=== PATIENT | female | born 1945 | race Caucasian/White ===

== ENCOUNTER 2017-10-24 09:00 | Day surgery (SDC) | payer MEDICARE, OTHER ==
[~2017-10-24 09:00] MED LIST: Lactated Ringers 1,000 ML IV SCH; Sodium Chloride 0.9% 10 ML Syringe FLUSH PRN; Sodium Chloride 0.9% 2.5 ML Syringe FLUSH PRN
--- NOTE | 2017-10-24 10:13 | PCM.PREANE ---
Preanesthetic Assessment - Anesthesia/Transfusion/Family Hx Anesthesia History: Prior Anesthesia Without Reaction Family History of Anesthesia Reaction: No Transfusion History: Prior Transfusion Without Reaction Intubation History: Unknown - Review of Systems General: No Symptoms Pulmonary: No Symptoms Cardiovascular: No Symptoms Gastrointestinal: Diarrhea Neurological: No Symptoms Other: Reports: None - Physical Assessment O2 Sat by Pulse Oximetry: 95 Respiratory Rate: 16 Vital Signs: Last Vital Signs Temp 36.4 C 10/24/17 09:25 Pulse 95 10/24/17 09:25 Resp 16 10/24/17 09:25 BP 154/73 H 10/24/17 09:25 Pulse Ox 95 10/24/17 09:25 Height: 1.57 m Weight: 66.678 kg ASA Class: 3 Mental Status: Alert & Oriented x3 Airway Class: Mallampati = 2 Dentition: Reports: Dentures (upper and lower) Thyro-Mental Finger Breadths: 3 Mouth Opening Finger Breadths: 2 ROM/Head Extension: Limited/Partial Lungs: Normal Respiratory Effort, Decreased Breath Sounds, Crackles Cardiovascular: Regular Rate, Regular Rhythm - Allergies Allergies/Adverse Reactions: Allergies Allergy/AdvReac Type Severity Reaction Status Date / Time gabapentin Allergy Shortness Verified 10/19/17 14:13 of Breath - Blood Blood Available: No - Anesthesia Plan Pre-Op Medication Ordered: None - Acknowledgements Anesthesia Type Planned: MAC Pt an Appropriate Candidate for the Planned Anesthesia: Yes Alternatives and Risks of Anesthesia Discussed w Pt/Guardian: Yes Pt/Guardian Understands and Agrees with Anesthesia Plan: Yes PreAnesthesia Questionnaire HEENT History: Reports: None Other HEENT History: wears glasses, has upper and lower dentures Cardiovascular History: Reports: None Respiratory History: Reports: Asthma (inhaler PRN), COPD Gastrointestinal History: Reports: Cholelithiasis, GERD Other Gastrointestinal History: got hepatitis C from a blood transfusion- has taken Harvoni and has been cured Genitourinary History: Reports: Acute Renal Failure, Renal Disease Other Genitourinary History: had acure renal failure after stroke- was on dialysis for 5 days, now has Stage 3 renal failure INFECTION CONTROL NURSE History: Reports: Musculoskeletal History: Reports: Back Pain, Chronic Other Musculoskeletal History: hx of fx left leg and right clavicle (no hardware ) Neurological History: Reports: CVA ( x2 in after second put into arficial comma for few weeks), Seizure Other Neuro History: 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, no seizures since Psychiatric History: Reports: Anxiety, Depression Endocrine/Metabolic History: Reports: None Hematologic History: Reports: Blood Transfusion(s) Other Hematologic History: states has had "multiple" transfusions Immunologic History: Reports: None Other Immunologic History: hx of MRSA after the CVA- has been tested and proved to be negative since then Oncologic (Cancer) History: Reports: None Other Oncologic History: breast cancer was "in situ" Dermatologic History: Reports: None Other Dermatologic History: hx of "cold sores" - Infectious Disease History Infectious Disease History: Reports: Chicken Pox, Hepatitis C, Shingles - Past Surgical History HEENT Surgical History: Reports: Other (See Below) Other HEENT Surgeries/Procedures: nodes removed on vocal cords GI Surgical History: Reports: Cholecystectomy, Colonoscopy (11 years ago) Female Surgical History: Reports: Hysterectomy Neurological Surgical History: Reports: Other (See Below) Other Neurological Surgeries/Procedures: "rods in back and neck" Musculoskeletal Surgical History: Reports: Shoulder Surgery (right), Other (See Below) Other Musculoskeletal Surgeries/Procedures:: Left femur in & removal; cervical fusion with titanium; lumbar fusion with titanium; rotator cuff repair Oncologic Surgical History: Reports: Lumpectomy - SUBSTANCE USE Smoking Status *Q: Former Smoker Tobacco Use Within Last Twelve Months: No Recreational Drug Use History: No - HOME MEDS Home Medications: Home Meds Acyclovir 400 mg PO BID 04/20/15 [History] Albuterol Sulfate [Proair Hfa] 108 mcg INH QID PRN 04/20/15 [History] Furosemide 40 mg PO DAILY 04/20/15 [History] NIFEdipine [Nifedipine ER] 90 mg PO DAILY 04/20/15 [History] Pantoprazole Sodium 40 mg PO DAILY 04/20/15 [History] Amitriptyline [Elavil] 50 mg PO BEDTIME PRN 04/21/15 [History] Baclofen 20 mg PO BEDTIME 10/19/17 [History] DULoxetine HCl [Cymbalta] 60 mg PO DAILY 10/19/17 [History] Dicyclomine HCl [Bentyl] 10 - 20 mg PO DAILY 10/19/17 [History] Hydrocodone/Acetaminophen [Hydrocodon-Acetaminophen 5-325] 1 tab PO ASDIRECTED PRN 10/19/17 [History] Ibuprofen 600 mg PO DAILY PRN 10/19/17 [History] Potassium Chloride [K-Tab ER] 10 meq PO DAILY 10/19/17 [History] - CURRENT (IN HOUSE) MEDS Current Meds: Current Medications Lactated Ringer's (Ringers, Lactated) 1,000 mls @ 125 mls/hr IV ASDIRECTED ALEXANDRA Last Admin: 10/24/17 09:33 Dose: 125 mls/hr Sodium Chloride (Saline Flush) 10 ml FLUSH ASDIRECTED PRN PRN Reason: Keep Vein Open Sodium Chloride (Saline Flush) 2.5 ml FLUSH ASDIRECTED PRN PRN Reason: Keep Vein Open Sodium Chloride (Saline Flush) 10 ml FLUSH ASDIRECTED PRN PRN Reason: Keep Vein Open Sodium Chloride (Saline Flush) 2.5 ml FLUSH ASDIRECTED PRN PRN Reason: Keep Vein Open
[2017-10-24] MEDS ORDERED: Propofol 200 MG/20 ML SDV ONE (10:37)
--- NOTE | 2017-10-24 11:36 | PCM.OPNOTE ---
- General Post-Op/Procedure Note Date of Surgery/Procedure: 10/24/17 Operative Procedure(s): Colonoscopy Findings: Normal colonoscopy Pre Op Diagnosis: Positive cologuard test Post-Op Diagnosis: normal colonoscopy Anesthesia Technique: AVILA Primary Surgeon: Pat Lyons Condition: Good
[2017-10-24 11:47] VITALS: BP 120/58
--- NOTE | 2017-10-24 16:41 | OR ---
SURGEON: SABAS HENRIQUEZ MD DATE OF PROCEDURE: 10/24/2017 PREOPERATIVE DIAGNOSIS: Positive Cologuard test. POSTOPERATIVE DIAGNOSIS: Normal colonoscopy. PROCEDURE PERFORMED: Diagnostic colonoscopy. ANESTHESIA: MAC. INSTRUMENT USED: Olympus colonoscope. EXTENT OF EXAM: To the cecum. PREPARATION: Good. LIMITATIONS: None. INDICATION FOR EXAMINATION: The patient is a 72-year-old female who recently underwent Cologuard screening test. This came back positive. We discussed the need for diagnostic colonoscopy. We discussed the procedure, expected perioperative course, all risks including bleeding, infection, or damage to surrounding structures including perforation. The patient verbalized understanding and wishes to proceed. PROCEDURE IN DETAIL: The patient was brought to the endoscopy suite and placed in the left lateral decubitus position. A time-out was completed verifying the patient's name, age, date of , allergies, and procedure to be performed. Monitored anesthesia care was induced and continuous oxygen was provided via face mask throughout the procedure. After adequate sedation was achieved, a digital rectal exam was performed. This exam was within normal limits. A well-lubricated colonoscope was inserted in the rectum and advanced under direct visualization to the level of the cecum. The cecum was identified by both visual and anatomic landmarks. Photograph was taken of the cecal cap; however, I was unable to retroflex the scope within the cecum due to looping of the scope more proximally. The scope was then fully withdrawn while examining the color, texture, anatomy, and integrity of the mucosa from the cecum to the anal canal. There was no evidence of any colonic pathology. No polyps or even diverticula were noted. The scope was then brought into the rectum and I attempted to retroflex the scope. Despite multiple attempts, the scope would not retroflexed adequately to give me good view of the opening of the anal canal. I was starting to cause superficial trauma to the rectal gavin itself. The decision was made to not get a retroflex view. I was able, however, to get a good view of the rectum and anal canal as I slowly pulled back. I did not see any pathology. The scope was removed and the procedure terminated. The [id number] time was 7 minutes. The patient tolerated the procedure well and was transferred to the PACU in stable condition. ENDOSCOPIC DIAGNOSIS: Normal colonoscopy. RECOMMENDATIONS: We will have the patient follow up in 2 weeks to discuss these findings and when the patient should come back in for a repeat colonoscopy. MARGOT / ADIS /[id number]
== END 2017-10-24 12:25 | disposition home or self-care (01) ==
LOC: MW.SDS 09:00
PROVIDERS: ATTEND Surgery
DX: R19.5 Other fecal abnormalities (principal); R19.4 Change in bowel habit; J44.9 Chronic obstructive pulmonary disease, unspecified; I10 Essential (primary) hypertension; N17.9 Acute kidney failure, unspecified; K21.9 Gastro-esophageal reflux disease without esophagitis; F41.8 Other specified anxiety disorders; Z87.891 Personal history of nicotine dependence; Z86.73 Personal history of transient ischemic attack (TIA), and cerebral infarction without residual deficits; Z79.899 Other long term (current) drug therapy
CPT/HCPCS: 45378; J7120; J2704

== ENCOUNTER 2021-08-20 08:42 | Day surgery (SDC) | payer MEDICARE, OTHER ==
[~2021-08-20 08:42] MED LIST changes: -Lactated Ringers 1,000 ML IV SCH; +Lidocaine 2% 5 ML SDV ONE; +Propofol 200 MG/20 ML SDV ONE; -Sodium Chloride 0.9% 10 ML Syringe FLUSH PRN; -Sodium Chloride 0.9% 2.5 ML Syringe FLUSH PRN; +fentaNYL 100 MCG/2 ML SDV ONE
[2021-08-20] MEDS ORDERED: Lactated Ringers 1,000 ML IV SCH ×2 (09:30→10:45)
[2021-08-20 11:58] VITALS: BP 118/61; PULSE 73
== END 2021-08-20 11:15 | disposition home or self-care (01) ==
LOC: MW.SDS 08:42
PROVIDERS: ATTEND Surgery
DX: K29.50 Unspecified chronic gastritis without bleeding (principal); K21.00 Gastro-esophageal reflux disease with esophagitis, without bleeding; K22.81 Esophageal polyp; K31.89 Other diseases of stomach and duodenum; K22.89 Other specified disease of esophagus; J44.9 Chronic obstructive pulmonary disease, unspecified; K21.9 Gastro-esophageal reflux disease without esophagitis; I10 Essential (primary) hypertension; F41.8 Other specified anxiety disorders; K58.9 Irritable bowel syndrome, unspecified; F11.90 Opioid use, unspecified, uncomplicated; G89.4 Chronic pain syndrome; Z90.49 Acquired absence of other specified parts of digestive tract; Z98.890 Other specified postprocedural states; Z98.51 Tubal ligation status; Z88.8 Allergy status to other drugs, medicaments and biological substances; Z87.891 Personal history of nicotine dependence; K29.30 Chronic superficial gastritis without bleeding; Z85.3 Personal history of malignant neoplasm of breast; Z86.19 Personal history of other infectious and parasitic diseases; Z87.19 Personal history of other diseases of the digestive system; Z80.0 Family history of malignant neoplasm of digestive organs; Z72.89 Other problems related to lifestyle; Z80.43 Family history of malignant neoplasm of testis; Z86.73 Personal history of transient ischemic attack (TIA), and cerebral infarction without residual deficits
CPT/HCPCS: J2704; J3010; J7120